=== PATIENT | female | born 1965 | race Caucasian/White ===

== ENCOUNTER 2017-02-11 03:15 | Inpatient (IN) | payer OTHER ==
[~2017-02-11] VITALS: Ht 162.6 cm; Wt 54.4 kg
[2017-02-11 03:33] VITALS: BP 129/73
[2017-02-11] MEDS ORDERED: Ketorolac 30mg Inj IV ONE (03:45)
[2017-02-11] MEDS ORDERED: Morphine Sulfate 4mg/ml Inj IVP ONE ×2 (03:45→05:15)
[2017-02-11 04:00] LABS: BASOPHILS % (AUTO) 0.9 % (0.0-2.0); BILIRUBIN, URINE NEGATIVE (NEGATIVE); EOSINOPHILS % (AUTO) 3.1 % (0.0-3.0); GLUCOSE, URINE (UA) NEGATIVE (NEGATIVE); HEMATOCRIT 45.5 % (37.0-47.0); HEMOGLOBIN 14.8 G/DL (12.0-16.0); KETONES,URINE NEGATIVE (NEGATIVE); LEUKOCYTE ESTERASE ,URINE 2+ (NEGATIVE); LYMPHOCYTES % (AUTO) 36.3 % (20.0-45.0); MEAN CORPUSCULAR VOLUME 90 FL (80-99); MONOCYTES % (AUTO) 8.3 % (1.0-10.0); NEUTROPHILS % (AUTO) 51.4 % (45.0-75.0); NITRITE,URINE NEGATIVE (NEGATIVE); PH,URINE 6 (4.5-8.0); PLATELET COUNT 210 K/UL (150-450); PROTEIN,URINE 2+ (NEGATIVE); RED BLOOD COUNT 5.05 M/UL (4.20-5.40); RED CELL DISTRIBUTION WIDTH 11.5 % (11.6-14.8); UROBILINOGEN,URINE NORMAL MG/DL (0.0-1.0); WHITE BLOOD COUNT 5.7 K/UL (4.8-10.8)
[2017-02-11 04:14] LABS: ANION GAP 7 mmol/L (5-15); APPEARANCE,URINE CLOUDY; BLOOD UREA NITROGEN 27 mg/dL (7-18); CALCIUM 8.3 MG/DL (8.5-10.1); CARBON DIOXIDE 29 MMOL/L (21-32); CHLORIDE 103 MMOL/L (98-107); COLOR,URINE YELLOW; CREATININE 0.9 MG/DL (0.55-1.30); POTASSIUM 3.8 MMOL/L (3.5-5.1); SODIUM 139 MMOL/L (136-145)
[2017-02-11 04:18] LABS: ALANINE AMINOTRANSFERASE 18 U/L (12-78); ALBUMIN 3.9 G/DL (3.4-5.0); ALBUMIN/GLOBULIN RATIO 1.1 (1.0-2.7); ALKALINE PHOSPHATASE 60 U/L (46-116); ASPARTATE AMINO TRANSFERASE 12 U/L (15-37); BILIRUBIN,TOTAL 0.2 MG/DL (0.2-1.0)
[2017-02-11] MEDS ORDERED: HYDROmorphone 1mg/ml Carpuject IVP ONE (06:15)
[2017-02-11 07:15] VITALS: BP 132/78
--- NOTE | 2017-02-11 09:02 | Emergency Room Report ---
History of Present Illness General Chief Complaint: Pain Source: Patient (MASSIEL BLOUNT M.D.) Present Illness HPI 51-year-old female presents to ED complaining of flank pain. States that flank pain started proximally one hour ago sudden onset. 10 out of 10. Sharp. Radiating towards the groin. Patient states she has history of kidney stones. States she's having difficulty urinating. Denies fevers chills. Denies nausea or vomiting. no other aggravating or relieving factors. Denies any other associated symptoms (MASSIEL BLOUNT M.D.) Allergies: Coded Allergies: AMPICILLIN (Verified Adverse Reaction, Unknown, 02/11/17) nausea Patient History Past Medical History: none Past Surgical History: none Pertinent Family History: none Social History: Denies: smoking, alcohol use, drug use Last Menstrual Period: 09/2016 Now: No Immunizations: UTD Reviewed Nursing Documentation: PMH: Agreed, PSxH: Agreed (MASSIEL BLOUNT M.D.) Nursing Documentation-PMH Past Medical History: No History, Except For (MASSIEL BLOUNT M.D.) Review of Systems All Other Systems: negative except mentioned in HPI (MASSIEL BLOUNT M.D.) Physical Exam Vital Signs Date Time Temp Pulse Resp B/P (MAP) Pulse Ox O2 Delivery O2 Flow Rate FiO2 02/11/17 03:19 97.9 80 16 129/73 99 Room Air Sp02 EP Interpretation: reviewed, normal General Appearance: alert, GCS 15, non-toxic, moderate distress Head: normocephalic, atraumatic Eyes: bilateral eye normal inspection, bilateral eye PERRL ENT: hearing grossly normal, normal pharynx, no angioedema, normal voice Neck: full range of motion, supple/symm/no masses Respiratory: chest non-tender, lungs clear, normal breath sounds, speaking full sentences Cardiovascular #1: regular rate, rhythm, no edema Cardiovascular #2: 2+ carotid (R), 2+ carotid (L), 2+ radial (R), 2+ radial (L) , 2+ dorsalis pedis (R), 2+ dorsalis pedis (L) Gastrointestinal: normal bowel sounds, non tender, soft, non-distended, no guarding, no rebound Rectal: deferred Genitourinary: normal inspection, CVA tenderness (L) Musculoskeletal: back normal, gait/station normal, normal range of motion, non- tender Neurologic: alert, oriented x3, responsive, motor strength/tone normal, sensory intact, speech normal Psychiatric: judgement/insight normal, memory normal, mood/affect normal, no suicidal/homicidal ideation Reflexes: 3+ bicep (R), 3+ bicep (L), 3+ tricep (R), 3+ tricep (L), 3+ knee (R) , 3+ knee (L) Skin: normal color, no rash, warm/dry, well hydrated Lymphatic: no adenopathy (MASSIEL BLOUNT M.D.) Medical Decision Making Diagnostic Impression: Primary Impression: Kidney stone Additional Impression: Pyelonephritis Labs Test 02/11/17 04:00 White Blood Count 5.7 K/UL (4.8-10.8) Red Blood Count 5.05 M/UL (4.20-5.40) Hemoglobin 14.8 G/DL (12.0-16.0) Hematocrit 45.5 % (37.0-47.0) Mean Corpuscular Volume 90 FL (80-99) Mean Corpuscular Hemoglobin 29.3 PG (27.0-31.0) Mean Corpuscular Hemoglobin Concent 32.5 G/DL (32.0-36.0) Red Cell Distribution Width 11.5 % (11.6-14.8) Platelet Count 210 K/UL (150-450) Mean Platelet Volume 7.7 FL (6.5-10.1) Neutrophils (%) (Auto) 51.4 % (45.0-75.0) Lymphocytes (%) (Auto) 36.3 % (20.0-45.0) Monocytes (%) (Auto) 8.3 % (1.0-10.0) Eosinophils (%) (Auto) 3.1 % (0.0-3.0) Basophils (%) (Auto) 0.9 % (0.0-2.0) Urine Color Yellow Urine Appearance Cloudy Urine pH 6 (4.5-8.0) Urine Specific [place] 1.025 (1.005-1.035) Urine Protein 2+ (NEGATIVE) Urine Glucose (UA) Negative (NEGATIVE) Urine Ketones Negative (NEGATIVE) Urine Occult Blood 5+ (NEGATIVE) Urine Nitrite Negative (NEGATIVE) Urine Bilirubin Negative (NEGATIVE) Urine Urobilinogen Normal MG/DL (0.0-1.0) Urine Leukocyte Esterase 2+ (NEGATIVE) Urine RBC Tntc /HPF (0 - 2) Urine WBC 15-20 /HPF (0 - 2) Urine Squamous Epithelial Cells Many /LPF (NONE/OCC) Urine Bacteria Few /HPF (NONE) Urine Mucus Many /LPF (NONE/OCC) Sodium Level 139 MMOL/L (136-145) Potassium Level 3.8 MMOL/L (3.5-5.1) Chloride Level 103 MMOL/L (98-107) Carbon Dioxide Level 29 MMOL/L (21-32) Anion Gap 7 mmol/L (5-15) Blood Urea Nitrogen 27 mg/dL (7-18) Creatinine 0.9 MG/DL (0.55-1.30) Estimat Glomerular Filtration Rate > 60 mL/min (>60) Glucose Level 107 MG/DL (74-106) Calcium Level 8.3 MG/DL (8.5-10.1) Total Bilirubin 0.2 MG/DL (0.2-1.0) Aspartate Amino Transf (AST/SGOT) 12 U/L (15-37) Alanine Aminotransferase (ALT/SGPT) 18 U/L (12-78) Alkaline Phosphatase 60 U/L (46-116) Total Protein 7.5 G/DL (6.4-8.2) Albumin 3.9 G/DL (3.4-5.0) Globulin 3.6 g/dL Albumin/Globulin Ratio 1.1 (1.0-2.7) Lipase 432 U/L (73-393) (MASSIEL BLOUNT M.D.) ER Course I received signout Please see above for full history and physical 51-year-old female, found to have a kidney stone, 4 mm, pyelonephritis, intractable pain Endorsed to (Leslie Bravo M.D.) CT/MRI/US Diagnostic Results CT/MRI/US Diagnostic Results : Imaging Test Ordered: CT A/P Impression 4mm L distal ureteral stone. obstructing. hydronephrosis (MASSIEL BLOUNT M.D.) Last Vital Signs Date Time Temp Pulse Resp B/P (MAP) Pulse Ox O2 Delivery O2 Flow Rate FiO2 02/11/17 07:15 72 18 132/78 100 Room Air 02/11/17 03:33 97.9 Status: improved (MASSIEL BLOUNT M.D.) Disposition: ADMITTED INPATIENT Condition: Serious Referrals: NON PHYSICIAN (PCP) MASSIEL BLOUNT M.D. Feb 11, 2017 09:02 Leslie Bravo M.D. Feb 11, 2017 10:42
[2017-02-11 11:10] VITALS: BP 128/76
[2017-02-11] MEDS ORDERED: UNOBMED (11:41)
[2017-02-11 12:40] VITALS: BP 130/72
--- NOTE | 2017-02-11 13:24 | GI Initial Consult Note ---
History of Present Illness General Date patient seen: Feb 11, 2017 Time patient seen: 13:13 Reason for Hospitalization: Pain Referring physician: TANIA PATRICK Reason for Consultation: ABDOMINAL PAIN / elevated lipase Present Illness HPI 51-year-old female presents to ED complaining of flank pain. States that flank pain started proximally one hour ago sudden onset. 10 out of 10. Sharp. Radiating towards the groin. Patient states she has history of kidney stones. States she's having difficulty urinating. Denies fevers chills. Denies nausea or vomiting. no other aggravating or relieving factors. Denies any other associated symptoms. GI consulted for elevated lipase and abdominal pain. HPI as noted above. Pt seen on floor, awake A&Ox4 NAD with no active s/sx of V/D. Has nausea with vomiting at this time. Denies any medical history. Stated she had 15/10 left flank pain last night. Now 4/10, after urinating. CT AP shows left kidney stone with hydronephrosis. No history of endoscopies / colonoscopies. Lab evaluation shows elevated lipase levels. No leukocytosis. Home Meds Reported Medications Unable to Obtain Medications (UNABLE TO OBTAIN MEDS) 1 Ea Ea 02/11/17 Med list reviewed/reconciled: Yes Allergies: Coded Allergies: AMPICILLIN (Verified Adverse Reaction, Unknown, 02/11/17) nausea Patient History History Provided By: Patient, Medical Record PMH Narrative Past Medical History: none Past Surgical History: none Pertinent Family History: none Social History: Denies: smoking, alcohol use, drug use Last Menstrual Period: 09/2016 Now: No Immunizations: UTD Reviewed Nursing Documentation: PMH: Agreed, PSxH: Agreed Nursing Documentation-PM Past Medical History: No History, Except For Social History: Reports: smoking - social, drug use Review of Systems All Other Systems: negative except mentioned in HPI Physical Exam Vital Signs Date Time Temp Pulse Resp B/P (MAP) Pulse Ox O2 Delivery O2 Flow Rate FiO2 02/11/17 03:19 97.9 80 16 129/73 99 Room Air Sp02 EP Interpretation: reviewed, normal Labs Laboratory Tests Test 02/11/17 04:00 White Blood Count 5.7 K/UL (4.8-10.8) Red Blood Count 5.05 M/UL (4.20-5.40) Hemoglobin 14.8 G/DL (12.0-16.0) Hematocrit 45.5 % (37.0-47.0) Mean Corpuscular Volume 90 FL (80-99) Mean Corpuscular Hemoglobin 29.3 PG (27.0-31.0) Mean Corpuscular Hemoglobin Concent 32.5 G/DL (32.0-36.0) Red Cell Distribution Width 11.5 % (11.6-14.8) L Platelet Count 210 K/UL (150-450) Mean Platelet Volume 7.7 FL (6.5-10.1) Neutrophils (%) (Auto) 51.4 % (45.0-75.0) Lymphocytes (%) (Auto) 36.3 % (20.0-45.0) Monocytes (%) (Auto) 8.3 % (1.0-10.0) Eosinophils (%) (Auto) 3.1 % (0.0-3.0) H Basophils (%) (Auto) 0.9 % (0.0-2.0) Urine Color Yellow Urine Appearance Cloudy Urine pH 6 (4.5-8.0) Urine Specific [place] 1.025 (1.005-1.035) Urine Protein 2+ (NEGATIVE) H Urine Glucose (UA) Negative (NEGATIVE) Urine Ketones Negative (NEGATIVE) Urine Occult Blood 5+ (NEGATIVE) H Urine Nitrite Negative (NEGATIVE) Urine Bilirubin Negative (NEGATIVE) Urine Urobilinogen Normal MG/DL (0.0-1.0) Urine Leukocyte Esterase 2+ (NEGATIVE) H Urine RBC Tntc /HPF (0 - 2) H Urine WBC 15-20 /HPF (0 - 2) H Urine Squamous Epithelial Cells Many /LPF (NONE/OCC) H Urine Bacteria Few /HPF (NONE) Urine Mucus Many /LPF (NONE/OCC) H Sodium Level 139 MMOL/L (136-145) Potassium Level 3.8 MMOL/L (3.5-5.1) Chloride Level 103 MMOL/L (98-107) Carbon Dioxide Level 29 MMOL/L (21-32) Anion Gap 7 mmol/L (5-15) Blood Urea Nitrogen 27 mg/dL (7-18) H Creatinine 0.9 MG/DL (0.55-1.30) Estimat Glomerular Filtration Rate > 60 mL/min (>60) Glucose Level 107 MG/DL (74-106) H Calcium Level 8.3 MG/DL (8.5-10.1) L Total Bilirubin 0.2 MG/DL (0.2-1.0) Aspartate Amino Transf (AST/SGOT) 12 U/L (15-37) L Alanine Aminotransferase (ALT/SGPT) 18 U/L (12-78) Alkaline Phosphatase 60 U/L (46-116) Total Protein 7.5 G/DL (6.4-8.2) Albumin 3.9 G/DL (3.4-5.0) Globulin 3.6 g/dL Albumin/Globulin Ratio 1.1 (1.0-2.7) Lipase 432 U/L (73-393) H General Appearance: well appearing, no apparent distress, alert Head: normocephalic EENT: PERRL/EOMI, normal ENT inspection Neck: supple Respiratory: normal breath sounds, no respiratory distress Cardiovascular: normal rate Gastrointestinal: normal inspection, non tender, soft, normal bowel sounds, non -distended Rectal: deferred Genitourinary: no CVA tenderness Musculoskeletal: normal inspection, back normal Neurologic: normal inspection, alert, oriented x3, responsive Psychiatric: normal inspection, judgement/insight normal, memory normal Skin: normal inspection, normal color, no rash, warm/dry, palpation normal, well hydrated Lymphatic: normal inspection, no adenopathy Current Medications Current Medications Medications (Trade) Dose Ordered Sig/Bailey Route PRN Reason Start Time Stop Time Status Last Admin Dose Admin Ondansetron HCl (Zofran) 4 mg Q6H PRN IVP Nausea & Vomiting 02/11/17 12:45 03/13/17 12:44 02/11/17 13:08 Sodium Chloride 1,000 ml @ 75 mls/hr [id number] IV 02/11/17 12:45 03/13/17 12:44 02/11/17 13:09 GI: Plan Problems: (1) Pancreatitis (2) Pyelonephritis Plan CT AP noted with left renal stone and hydronephrosis. elevated lipase levels symptomatic treatment at this time CLD, adv as tolerated zofran prn pain mgmt H2B repeat imaging studies prn fu labs, lipase Discussed with Dr. Gregorio. Thank you for this patient referral, we will follow. Doris Torres N.P. Feb 11, 2017 13:24
[2017-02-11] MEDS ORDERED: HYDROmorphone 1mg/ml Carpuject IVP PRN (16:00)
[2017-02-11] MEDS: Ketorolac 30mg Inj IV SCH ×2 (16:15→22:15)
--- NOTE | 2017-02-11 20:44 | Diagnostic Imaging Report ---
Indication: Left flank pain Technique: CT of the abdomen and pelvis utilizing automated exposure control without intravenous or oral contrast. CT dose: Total DLP 632.35 mGycm; CTDI vol 12.1 mGy Comparison: None Findings: Please note that evaluation of the abdominal pelvic viscera is limited without the use of intravenous and oral contrast. Within these limitations, the following observations are made: Dependent atelectasis noted in the lung bases. Heart size within normal limits. There is no pericardial effusion. Noncontrast evaluation of the liver, gallbladder, spleen, adrenal glands and pancreas is grossly unremarkable. There is a 4 mm stone in the distal left ureter, approximately 1 cm from the UVJ, which results in mild left-sided hydroureteronephrosis and left-sided perinephric stranding. No urinary tract stone or hydronephrosis is seen on the right. The bladder is collapsed, limiting its evaluation. There is a 4 x 5 cm mass in the right adnexal region which may represent an ovarian mass versus pedunculated fibroid. Correlation with pelvic ultrasound is recommended for further evaluation. There is no bowel obstruction. No free intraperitoneal fluid or air is seen. The appendix is normal. There is no bulky abdominal pelvic lymphadenopathy however evaluation is limited without the use of contrast. No acute osseous abnormality is identified. Abdominal aorta is normal in caliber. Impression: Limited evaluation without intravenous or oral contrast. Within these limitations: * 4 mm stone in the distal left ureter resulting in mild left-sided hydroureteronephrosis and left-sided perinephric stranding. Correlation with urinalysis recommended to assess for pyelonephritis * Approximately 4 x 5 cm right adnexal mass versus pedunculated uterine fibroid. Correlation with pelvic ultrasound recommended for better characterization. This corresponds with the statrad preliminary report. The CT scanner at [facility] is accredited by the [employer] and the scans are performed using protocols designed to limit radiation exposure to as low as reasonably achievable to attain images of sufficient resolution adequate for diagnostic evaluation.
[2017-02-11 20:50] VITALS: BP 92/46
--- NOTE | 2017-02-11 22:15 | Consultation ---
DATE OF CONSULTATION: 02/11/2017 UROLOGY CONSULTATION CONSULTING PHYSICIAN: Barrera Lafleur M.D. ATTENDING/CONSULTING PHYSICIAN: Candida Larson M.D. CHIEF COMPLAINT/HISTORY OF PRESENT ILLNESS: I was asked by Dr. Larson to evaluate this very pleasant 51-year-old female regarding history of a ureteral stone with hydronephrosis and colic secondary to the same. Briefly, the patient presented to the hospital with a history of flank and abdominal pain on the left side. This is associated with nausea and vomiting. Apparently 25 years ago, she had a kidney stone, which was passed. A CT scan revealed a 4 mm distal left ureteral stone. The patient had continual pain, so she was admitted for further evaluation and I was asked to evaluate the patient. PAST MEDICAL HISTORY: Remote nephrolithiasis, otherwise, unremarkable. PAST SURGICAL HISTORY: None. MEDICATIONS: Generally none. ALLERGIES: Ampicillin. SOCIAL HISTORY: Unremarkable tobacco, alcohol or drug use. FAMILY HISTORY: Noncontributory. REVIEW OF SYSTEMS: A 12-system review of systems is essentially unremarkable outside of what is described above. PHYSICAL EXAMINATION: GENERAL: The patient is a middle-aged female, awake, alert, oriented x4, pleasant, in no obvious distress. HEENT: NC/AT. EOMI. NECK: Supple. Full range of motion. Oropharynx clear. CHEST: Within normal limits. ABDOMEN: Soft, nontender, and nondistended. EXTREMITIES: Warm and well perfused. No cyanosis, clubbing, or edema. BACK: No CVA tenderness to percussion. NEUROLOGIC: Grossly nonfocal. LABORATORY DATA: White blood cell count 5.7, hematocrit 45.5, platelets 210,000. Sodium 139, potassium 3.8, chloride 103, bicarbonate 29, BUN 27, creatinine 0.9, glucose 107, calcium 8.3. LFTs within normal limits. Lipase 432. Urinalysis, specific gravity 1.025, pH 6.0. Dip test notable for 2+ protein, 5+ occult blood. Microanalysis with too numerous to count red blood cells per high-power field, 15 to 20 white blood cells per high-power field, and few bacteria seen. DIAGNOSTIC IMAGING: CT scan of the abdomen and pelvis reveals a left 4 mm distal ureteral stone with obstructing hydronephrosis secondary to same. ASSESSMENT AND PLAN: In summary, the patient is a 51-year-old female with a history of a left ureteral stone with hydronephrosis and colic secondary to the same. The patient was admitted for intractable pain. I placed the patient on Toradol and her pain has resolved entirely. She wishes to go home. She understands that although the stone is small, she needs to follow up to ensure that it does pass on its own or to have surgical extraction done later on if it does not. She will arrange this through her primary care provider as she has HMO insurance. All the patient's questions were answered and she was amenable to this plan. Thank you for allowing me to participate in the care of this nice lady. Please do not hesitate to contact me for any questions that you may further have regarding her care. I will be happy to see her with you as needed. Barrera Lafleur M.D. DR: CHRISSIE JOB#: [id number] CC:
[2017-02-12 00:05] VITALS: BP 94/50
[2017-02-12] MEDS: Ketorolac 30mg Inj IV SCH ×4 (04:15→22:19)
[2017-02-12 04:51] VITALS: BP 95/52
--- NOTE | 2017-02-12 06:00 | History and Physical Report ---
DATE OF ADMISSION: 02/11/2017 NOTE: POOR AUDIO HISTORY OF PRESENT ILLNESS: The patient is admitted for acute pyelonephritis, has left-sided flank pain for one day, which is associated with vomiting. The patient's pain was getting worse, could not tolerate, she came to the hospital. The patient was admitted for kidney stone 4 mm. The patient denies fever or chills. Denies rectal bleeding. Denies dysuria. The patient also denies any change in weight. The patient basically also is admitted for elevated lipase as well complained of abdominal pain for one day. PAST MEDICAL HISTORY: None. PAST SURGICAL HISTORY: . MEDICATIONS: The patient does not take anything . ALLERGIES: Penicillin. FAMILY HISTORY: Noncontributory. REVIEW OF SYSTEMS: HEENT: Denies headaches. RESPIRATORY: Denies shortness of breath. Denies cough. CARDIOVASCULAR: Denies chest pain. GASTROINTESTINAL: Does have nausea and vomiting. Does have abdominal pain and flank pain. EXTREMITIES: pain in lower extremity which was removed. PHYSICAL EXAMINATION: VITAL SIGNS: Temperature is 97.9, pulse 80, and blood pressure 139/73. HEENT: PERRLA. NECK: Supple. No lymphadenopathy. CHEST: Clear to auscultation. GASTROINTESTINAL: Abdomen is soft. Positive bowel sounds. Epigastric tenderness as well as left-sided flank tenderness. No rebound. EXTREMITIES: No edema. . NEUROLOGICAL: touch. LABORATORY DATA: WBC of 5.7, hemoglobin 14.8, and platelets 210,000. Sodium 139, potassium 3.8, BUN of 33, creatinine , and glucose of 107. Lipase 432. signs and symptoms of UTI. ASSESSMENT AND PLAN: left-sided kidney stones . and Dr. Gregorio to see the patient for the above-mentioned diagnosis and treatment. Candida Larson M.D. DR: Isidra JOB#: [id number] CC:
[2017-02-12 06:29] LABS: ANION GAP 10 mmol/L (5-15); BLOOD UREA NITROGEN 23 mg/dL (7-18); CALCIUM 7.6 MG/DL (8.5-10.1); CARBON DIOXIDE 23 MMOL/L (21-32); CHLORIDE 108 MMOL/L (98-107); CREATININE 0.7 MG/DL (0.55-1.30); POTASSIUM 3.7 MMOL/L (3.5-5.1); SODIUM 141 MMOL/L (136-145)
[2017-02-12 06:42] LABS: BASOPHILS % (AUTO) 0.8 % (0.0-2.0); EOSINOPHILS % (AUTO) 3.8 % (0.0-3.0); HEMATOCRIT 38.7 % (37.0-47.0); HEMOGLOBIN 12.9 G/DL (12.0-16.0); LYMPHOCYTES % (AUTO) 40.8 % (20.0-45.0); MEAN CORPUSCULAR VOLUME 91 FL (80-99); MONOCYTES % (AUTO) 5.9 % (1.0-10.0); NEUTROPHILS % (AUTO) 48.7 % (45.0-75.0); PLATELET COUNT 183 K/UL (150-450); RED BLOOD COUNT 4.27 M/UL (4.20-5.40); RED CELL DISTRIBUTION WIDTH 11.5 % (11.6-14.8); WHITE BLOOD COUNT 5.9 K/UL (4.8-10.8)
[2017-02-12 08:00] VITALS: BP 99/50
--- NOTE | 2017-02-12 08:50 | Consultation ---
History of Present Illness General Date patient seen: Feb 12, 2017 Chief Complaint: Referring physician: Reason for Consultation: Present Illness Allergies: Coded Allergies: AMPICILLIN (Verified Adverse Reaction, Unknown, 02/11/17) nausea Medication History Miscellaneous Medications Unable to Obtain Medications (Unable To Obtain Meds), (Reported) Patient History Healthcare decision maker Resuscitation status Full Code Advanced Directive on File Physical Exam Last 24 Hour Vital Signs Date Time Temp Pulse Resp B/P (MAP) Pulse Ox O2 Delivery O2 Flow Rate FiO2 02/12/17 08:00 98.4 62 18 99/50 98 02/12/17 04:51 97.9 61 17 95/52 97 02/12/17 00:05 97.7 59 18 94/50 98 02/11/17 20:50 98.1 66 18 92/46 98 02/11/17 12:40 74 18 130/72 99 Room Air 02/11/17 12:40 97.9 74 18 130/72 99 Room Air 02/11/17 11:10 70 18 128/76 98 Room Air Intake and Output 02/11/17 02/12/17 19:00 07:00 Intake Total 450 ml 825 ml Balance 450 ml 825 ml Intake IV Total 450 ml 825 ml # Voids 3 Laboratory Tests Test 02/12/17 05:45 White Blood Count 5.9 K/UL (4.8-10.8) Red Blood Count 4.27 M/UL (4.20-5.40) Hemoglobin 12.9 G/DL (12.0-16.0) Hematocrit 38.7 % (37.0-47.0) Mean Corpuscular Volume 91 FL (80-99) Mean Corpuscular Hemoglobin 30.2 PG (27.0-31.0) Mean Corpuscular Hemoglobin Concent 33.2 G/DL (32.0-36.0) Red Cell Distribution Width 11.5 % (11.6-14.8) L Platelet Count 183 K/UL (150-450) Mean Platelet Volume 7.6 FL (6.5-10.1) Neutrophils (%) (Auto) 48.7 % (45.0-75.0) Lymphocytes (%) (Auto) 40.8 % (20.0-45.0) Monocytes (%) (Auto) 5.9 % (1.0-10.0) Eosinophils (%) (Auto) 3.8 % (0.0-3.0) H Basophils (%) (Auto) 0.8 % (0.0-2.0) Sodium Level 141 MMOL/L (136-145) Potassium Level 3.7 MMOL/L (3.5-5.1) Chloride Level 108 MMOL/L (98-107) H Carbon Dioxide Level 23 MMOL/L (21-32) Anion Gap 10 mmol/L (5-15) Blood Urea Nitrogen 23 mg/dL (7-18) H Creatinine 0.7 MG/DL (0.55-1.30) Estimat Glomerular Filtration Rate > 60 mL/min (>60) Glucose Level 78 MG/DL (74-106) Calcium Level 7.6 MG/DL (8.5-10.1) L Lipase 117 U/L (73-393) Height (Feet): 5 Height (Inches): 4.00 Weight (Pounds): 120 Medications Current Medications Medications (Trade) Dose Ordered Sig/Bailey Route PRN Reason Start Time Stop Time Status Last Admin Dose Admin Hydromorphone HCl (Dilaudid) 1 mg Q4H PRN IVP severe pain 02/11/17 16:00 02/18/17 15:59 Ketorolac Tromethamine (Toradol 30mg) 15 mg Q6H IV 02/11/17 16:15 02/16/17 16:14 Ondansetron HCl (Zofran) 4 mg Q6H PRN IVP Nausea & Vomiting 02/11/17 12:45 03/13/17 12:44 02/11/17 13:08 Sodium Chloride 1,000 ml @ 75 mls/hr [id number] IV 02/11/17 12:45 03/13/17 12:44 02/12/17 02:13 Assessment/Plan Assessment/Plan (1) Left sided flank pain (2) Urethral stone (3) Hydronephrosis seen KRISTOPHER Borrego Feb 12, 2017 08:50
[2017-02-12] MEDS ORDERED: Hydromorphone 0.5mg/0.5ml inj IVP PRN ×2 (10:15→14:15)
--- NOTE | 2017-02-12 10:40 | GI Progress Note ---
Assessment/Plan Problems: (1) Pyelonephritis ICD Codes: N12 - Tubulo-interstitial nephritis, not specified as acute or chronic SNOMED: 37608303 (2) Pancreatitis ICD Codes: K85.90 - Acute pancreatitis without necrosis or infection, unspecified SNOMED: 46480105 (3) Kidney stone ICD Codes: N20.0 - Calculus of kidney SNOMED: 06744045 Status: deteriorating Status Narrative Discussed with Dr. Gregorio. Assessment/Plan CT AP noted with left renal stone and hydronephrosis. elevated lipase levels >> now normal fu urology recs symptomatic treatment at this time regular diet, tolerating zofran prn pain mgmt H2B repeat imaging studies prn fu labs Subjective Subjective left flank pain Objective Last 24 Hour Vital Signs Date Time Temp Pulse Resp B/P (MAP) Pulse Ox O2 Delivery O2 Flow Rate FiO2 02/12/17 08:00 98.4 62 18 99/50 98 02/12/17 04:51 97.9 61 17 95/52 97 02/12/17 00:05 97.7 59 18 94/50 98 02/11/17 20:50 98.1 66 18 92/46 98 02/11/17 12:40 74 18 130/72 99 Room Air 02/11/17 12:40 97.9 74 18 130/72 99 Room Air 02/11/17 11:10 70 18 128/76 98 Room Air Intake and Output 02/11/17 02/12/17 19:00 07:00 Intake Total 450 ml 825 ml Balance 450 ml 825 ml IV Total 450 ml 825 ml # Voids 3 Laboratory Tests Test 02/12/17 05:45 White Blood Count 5.9 K/UL (4.8-10.8) Red Blood Count 4.27 M/UL (4.20-5.40) Hemoglobin 12.9 G/DL (12.0-16.0) Hematocrit 38.7 % (37.0-47.0) Mean Corpuscular Volume 91 FL (80-99) Mean Corpuscular Hemoglobin 30.2 PG (27.0-31.0) Mean Corpuscular Hemoglobin Concent 33.2 G/DL (32.0-36.0) Red Cell Distribution Width 11.5 % (11.6-14.8) L Platelet Count 183 K/UL (150-450) Mean Platelet Volume 7.6 FL (6.5-10.1) Neutrophils (%) (Auto) 48.7 % (45.0-75.0) Lymphocytes (%) (Auto) 40.8 % (20.0-45.0) Monocytes (%) (Auto) 5.9 % (1.0-10.0) Eosinophils (%) (Auto) 3.8 % (0.0-3.0) H Basophils (%) (Auto) 0.8 % (0.0-2.0) Sodium Level 141 MMOL/L (136-145) Potassium Level 3.7 MMOL/L (3.5-5.1) Chloride Level 108 MMOL/L (98-107) H Carbon Dioxide Level 23 MMOL/L (21-32) Anion Gap 10 mmol/L (5-15) Blood Urea Nitrogen 23 mg/dL (7-18) H Creatinine 0.7 MG/DL (0.55-1.30) Estimat Glomerular Filtration Rate > 60 mL/min (>60) Glucose Level 78 MG/DL (74-106) Calcium Level 7.6 MG/DL (8.5-10.1) L Lipase 117 U/L (73-393) Height (Feet): 5 Height (Inches): 4.00 Weight (Pounds): 120 General Appearance: WD/WN, no apparent distress, alert Cardiovascular: normal rate Respiratory/Chest: normal breath sounds, no respiratory distress Abdominal Exam: normal bowel sounds, non tender, soft Extremities: normal range of motion, non-tender Doris Torres N.P. Feb 12, 2017 10:40
[2017-02-12 12:00] VITALS: BP 95/52
--- NOTE | 2017-02-12 12:43 | General Progress Note ---
Assessment/Plan Problem List: (1) Pancreatitis ICD Codes: K85.90 - Acute pancreatitis without necrosis or infection, unspecified SNOMED: 52337726 (2) Kidney stone ICD Codes: N20.0 - Calculus of kidney SNOMED: 91597460 Status: unchanged Assessment/Plan still has flank pain treatment of kidney stone per urologist Subjective Gastrointestinal/Abdominal: Reports: abdominal pain Allergies: Coded Allergies: AMPICILLIN (Verified Adverse Reaction, Unknown, 02/11/17) nausea Objective Last 24 Hour Vital Signs Date Time Temp Pulse Resp B/P (MAP) Pulse Ox O2 Delivery O2 Flow Rate FiO2 02/12/17 12:00 98.3 59 18 95/52 97 02/12/17 09:59 98.4 02/12/17 09:59 98.4 02/12/17 08:00 98.4 62 18 99/50 98 02/12/17 04:51 97.9 61 17 95/52 97 02/12/17 00:05 97.7 59 18 94/50 98 02/11/17 20:50 98.1 66 18 92/46 98 Intake and Output 02/11/17 02/12/17 19:00 07:00 Intake Total 450 ml 825 ml Balance 450 ml 825 ml IV Total 450 ml 825 ml # Voids 3 Laboratory Tests 02/12/17 05:45: White Blood Count 5.9, Red Blood Count 4.27, Hemoglobin 12.9, Hematocrit 38.7, Mean Corpuscular Volume 91, Mean Corpuscular Hemoglobin 30.2, Mean Corpuscular Hemoglobin Concent 33.2, Red Cell Distribution Width 11.5L, Platelet Count 183, Mean Platelet Volume 7.6, Neutrophils (%) (Auto) 48.7, Lymphocytes (%) (Auto) 40.8, Monocytes (%) (Auto) 5.9, Eosinophils (%) (Auto) 3.8H, Basophils (%) (Auto ) 0.8, Sodium Level 141, Potassium Level 3.7, Chloride Level 108H, Carbon Dioxide Level 23, Anion Gap 10, Blood Urea Nitrogen 23H, Creatinine 0.7, Estimat Glomerular Filtration Rate > 60, Glucose Level 78, Calcium Level 7.6L, Lipase 117 Height (Feet): 5 Height (Inches): 4.00 Weight (Pounds): 120 Cardiovascular: normal rate Respiratory/Chest: lungs clear Abdomen: tender Candida Larson MD Feb 12, 2017 12:43
[2017-02-12] MEDS: Cefepime HCl 1 GM in D5W 55 ML IVPB SCH ×2 (14:14→20:48)
[2017-02-12] MEDS ORDERED: Morphine Sulfate 2mg/ml Inj IVP ONE (14:30)
[2017-02-12 16:00] VITALS: BP 98/52
--- NOTE | 2017-02-12 17:00 | Consultation ---
DATE OF CONSULTATION: 02/12/2017 INFECTIOUS DISEASES CONSULTATION CONSULTING PHYSICIAN: Sanjuanita Nichols M.D. REFERRING PHYSICIAN: Candida Larson M.D. This consultation has been done on behalf of Dr. Ervin Dinh. REASON FOR CONSULTATION: Urinary tract infection. HISTORY OF PRESENTING ILLNESS: This is a 51-year-old lady with no significant past medical history, who came in with left-sided flank pain along with some nausea and vomiting. There is a concern for urinary tract infection and an Infectious Diseases consultation has been obtained for antibiotics. PAST MEDICAL HISTORY: She denies any past medical history of any illnesses. MEDICATIONS: As an inpatient, she is on Dilaudid, ketorolac, and Zofran. ALLERGIES: She is allergic to ampicillin. SOCIAL HISTORY: She does not smoke, drink, or use drugs. FAMILY HISTORY: Positive for cancer. REVIEW OF SYSTEMS: RESPIRATORY: She denies any fever, chills, cough, shortness of breath, or chest pain. CARDIAC: No chest pain. No palpitation. No dizziness. No syncope. GASTROINTESTINAL: She had nausea and vomiting. She complains of left flank pain. GENITOURINARY: No dysuria. No hematuria. PHYSICAL EXAMINATION: VITAL SIGNS: Temperature of 98.4, T-max of 98.4, pulse of 62, respiratory rate of 18, blood pressure 99/50, and O2 saturation of 98%. HEENT: Pupils equally reactive to light and accommodation. Mouth appears clean with no thrush. NECK: Supple. No adenopathy. No JVD. CARDIOVASCULAR: Regular rate and rhythm. No murmurs. LUNGS: Clear to auscultation bilaterally. No crackles. No wheezes. ABDOMEN: Soft and nontender. No organomegaly. Left-sided flank tenderness noted. EXTREMITIES: No cyanosis, no clubbing, and no edema. LABORATORY AND DIAGNOSTIC DATA: White count 5.9, hemoglobin 12.9, hematocrit 38.7, MCV 91, and platelet count of 183. Sodium 141, potassium 3.7, chloride 108, bicarbonate 23, BUN 23, creatinine 0.7 and glucose 141. Calcium 7.6. Total bilirubin 0.2. AST 12, ALT 18, and alkaline phosphatase 60. Total protein 7.5. Albumin 3.9. lipase of 432 yesterday. UA showing 15 to 20 white cells. Urine cultures are negative so far. CT of the abdomen and pelvis showing 4 mm stone in the distal left ureteral resulting in mid left-sided hydroureteronephrosis and left-sided perinephric stranding. Right adnexal mass versus pedunculated uterine fibroids. ASSESSMENT: This is a 51-year-old lady with no significant past medical history, who comes in with kidney stone and a possible pyelonephritis. Urine cultures are negative so far. PLAN: 1. We will start the patient on IV cefepime. 2. We will follow up cultures and adjust antibiotics accordingly. I would like to thank, Dr. Larson today for this consultation. Sanjuanita Nichols M.D. DR: NIA JOB#: [id number] CC: Candida Larson M.D.; Fax#: [phone]
[2017-02-12 20:00] VITALS: BP 96/54
[2017-02-13 00:23] VITALS: BP 93/56
--- NOTE | 2017-02-13 02:00 | Consultation ---
DATE OF CONSULTATION: 02/12/2017 NOTE: POOR AUDIO PAIN MANAGEMENT CONSULTATION CONSULTING PHYSICIAN: Guilherme Barrios M.D. ATTENDING/REFERRING PHYSICIAN: Candida Larson M.D. PHYSICIAN DIRECTOR HR COMMUNICATIONS: Miguel Kwan CHIEF COMPLAINT: Left-sided flank pain. HISTORY OF PRESENT ILLNESS: This is a 51-year-old female, who is being seen on the Med/Surg floor of [facility] for initial comprehensive pain management consultation. The patient left-sided flank pain with an abdominal pain due to ureteral stone, admitted through the ER into the hospital. She was started on Dilaudid 1 mg IV every 4 hours as needed for severe pain. Pain has reduced discharge home. PAST MEDICAL HISTORY: Nephrolithiasis. PAST SURGICAL HISTORY: Denies. MEDICATIONS: Denies. ALLERGIES: Ampicillin. SOCIAL HISTORY: Denies smoking tobacco, drinking alcohol, or IV drug abuse. REVIEW OF SYSTEMS: Denies rash, fever, chills, sweating, dizziness, drowsiness, or change in her weight. No shortness of breath, chest pain, palpitations, or cough. No nausea, vomiting, diarrhea, or blood in the stool or urine. No bowel or bladder incontinence. No dysuria. She is complaining of left-sided flank pain. PHYSICAL EXAMINATION: GENERAL: Alert, awake, and oriented. VITAL SIGNS: Blood pressure /50, heart rate is , oxygen saturation 98%, respiratory rate 18, and temperature is 97.5 degrees Fahrenheit. HEENT: PERRLA. NECK: Range of motion is full in all directions. No tenderness to paracervical muscles. No adenopathy. LUNGS: Clear. HEART: Regular. ABDOMEN: Benign. EXTREMITIES: No cyanosis, no clubbing, and no edema. NEUROLOGICAL: No focal deficit. ASSESSMENT AND PLAN: This is a 51-year-old female with left-sided flank pain, ureteral stone, and hydronephrosis. 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 Continue Dilaudid 1 mg IV every 4 hours as needed for severe pain. The patient was discussed with Dr. Barrios and Dr. Barrios concurred. We will follow the patient. Thank you very much for the courtesy of this consultation. Guilherme Barrios M.D. APARNA Kwan DR: IZRichard JOB#: [id number] CC:
[2017-02-13 04:00] VITALS: BP 101/52
[2017-02-13] MEDS: Ketorolac 30mg Inj IV SCH ×2 (04:15→10:15)
[2017-02-13 06:39] LABS: BASOPHILS % (AUTO) 0.9 % (0.0-2.0); HEMATOCRIT 36.4 % (37.0-47.0); HEMOGLOBIN 12.6 G/DL (12.0-16.0); LYMPHOCYTES % (AUTO) 47.2 % (20.0-45.0); MEAN CORPUSCULAR VOLUME 90 FL (80-99); MONOCYTES % (AUTO) 4.9 % (1.0-10.0); NEUTROPHILS % (AUTO) 39.9 % (45.0-75.0); PLATELET COUNT 159 K/UL (150-450); RED BLOOD COUNT 4.04 M/UL (4.20-5.40); RED CELL DISTRIBUTION WIDTH 11.5 % (11.6-14.8); WHITE BLOOD COUNT 5.8 K/UL (4.8-10.8)
[2017-02-13 07:03] LABS: ANION GAP 9 mmol/L (5-15); BLOOD UREA NITROGEN 21 mg/dL (7-18); CALCIUM 7.5 MG/DL (8.5-10.1); CARBON DIOXIDE 23 MMOL/L (21-32); CHLORIDE 109 MMOL/L (98-107); CREATININE 0.6 MG/DL (0.55-1.30); POTASSIUM 3.9 MMOL/L (3.5-5.1); SODIUM 141 MMOL/L (136-145)
[2017-02-13 08:40] VITALS: BP 105/47
[2017-02-13] MEDS: Cefepime HCl 1 GM in D5W 55 ML IVPB SCH (09:07)
[2017-02-13] MEDS ORDERED: Docusate 100mg cap ORAL SCH (10:15)
[2017-02-13] MEDS ORDERED: Bisacodyl EC 5mg tab ORAL SCH (10:15)
[2017-02-13] MEDS ORDERED: Sennosides 8.6mg ORAL SCH (10:15)
--- NOTE | 2017-02-13 10:29 | GI Progress Note ---
Assessment/Plan Problems: (1) Pyelonephritis ICD Codes: N12 - Tubulo-interstitial nephritis, not specified as acute or chronic SNOMED: 60338775 (2) Pancreatitis ICD Codes: K85.90 - Acute pancreatitis without necrosis or infection, unspecified SNOMED: 22405561 (3) Kidney stone ICD Codes: N20.0 - Calculus of kidney SNOMED: [id number] Status: unchanged Status Narrative Discussed with Dr. Gregorio. Assessment/Plan CT AP noted with left renal stone and hydronephrosis. elevated lipase levels >> now normal fu urology recs okay for DC per GI standpoint symptomatic treatment at this time regular diet, tolerating zofran prn pain mgmt H2B repeat imaging studies prn fu labs Subjective Subjective left flank pain, comes and goes Objective Last 24 Hour Vital Signs Date Time Temp Pulse Resp B/P (MAP) Pulse Ox O2 Delivery O2 Flow Rate FiO2 02/13/17 08:40 97.5 60 18 105/47 98 Room Air 02/13/17 04:00 Room Air 02/13/17 04:00 97.2 78 17 101/52 97 02/13/17 00:23 97.9 64 17 93/56 94 02/12/17 20:00 97.6 62 18 96/54 97 Room Air 02/12/17 17:48 97.8 02/12/17 16:01 96 Room Air 02/12/17 16:00 97.8 61 18 98/52 96 02/12/17 15:24 97.8 02/12/17 14:15 98.3 02/12/17 12:01 97 Room Air 02/12/17 12:00 98.3 59 18 95/52 97 Intake and Output 02/12/17 02/13/17 19:00 07:00 Intake Total 1370 ml 900 ml Balance 1370 ml 900 ml Intake Oral 620 ml IV Total 750 ml 900 ml # Voids 3 Laboratory Tests Test 02/13/17 04:50 White Blood Count 5.8 K/UL (4.8-10.8) Red Blood Count 4.04 M/UL (4.20-5.40) L Hemoglobin 12.6 G/DL (12.0-16.0) Hematocrit 36.4 % (37.0-47.0) L Mean Corpuscular Volume 90 FL (80-99) Mean Corpuscular Hemoglobin 31.2 PG (27.0-31.0) H Mean Corpuscular Hemoglobin Concent 34.6 G/DL (32.0-36.0) Red Cell Distribution Width 11.5 % (11.6-14.8) L Platelet Count 159 K/UL (150-450) Mean Platelet Volume 8.0 FL (6.5-10.1) Neutrophils (%) (Auto) 39.9 % (45.0-75.0) L Lymphocytes (%) (Auto) 47.2 % (20.0-45.0) H Monocytes (%) (Auto) 4.9 % (1.0-10.0) Eosinophils (%) (Auto) 7.0 % (0.0-3.0) H Basophils (%) (Auto) 0.9 % (0.0-2.0) Sodium Level 141 MMOL/L (136-145) Potassium Level 3.9 MMOL/L (3.5-5.1) Chloride Level 109 MMOL/L (98-107) H Carbon Dioxide Level 23 MMOL/L (21-32) Anion Gap 9 mmol/L (5-15) Blood Urea Nitrogen 21 mg/dL (7-18) H Creatinine 0.6 MG/DL (0.55-1.30) Estimat Glomerular Filtration Rate > 60 mL/min (>60) Glucose Level 95 MG/DL (74-106) Calcium Level 7.5 MG/DL (8.5-10.1) L Height (Feet): 5 Height (Inches): 4.00 Weight (Pounds): 120 General Appearance: WD/WN, no apparent distress, alert Cardiovascular: normal rate Respiratory/Chest: normal breath sounds, no respiratory distress Abdominal Exam: normal bowel sounds, non tender, soft Extremities: normal range of motion, non-tender Doris Torres N.P. Feb 13, 2017 10:29
[2017-02-13] MEDS ORDERED: Levofloxacin 500mg tab ORAL SCH (11:00)
--- NOTE | 2017-02-13 11:00 | Infectious Diseases Prog Note ---
Assessment/Plan Assessment/Plan antibiotics : cefepime A 1. pyelonephritis 2. renal stone P 1. d/c cefepime 2. start and continue po levoquin 4 more days 3. will follow up cultures Subjective Constitutional: Denies: fever, chills Respiratory: Denies: shortness of breath, dry cough Gastrointestinal/Abdominal: Reports: nausea, Denies: vomiting, diarrhea Musculoskeletal: Reports: pain - decreasing Allergies: Coded Allergies: AMPICILLIN (Verified Adverse Reaction, Unknown, 02/11/17) nausea Objective Vital Signs Last 24 Hour Vital Signs Date Time Temp Pulse Resp B/P (MAP) Pulse Ox O2 Delivery O2 Flow Rate FiO2 02/13/17 08:40 97.5 60 18 105/47 98 Room Air 02/13/17 04:00 Room Air 02/13/17 04:00 97.2 78 17 101/52 97 02/13/17 00:23 97.9 64 17 93/56 94 02/12/17 20:00 97.6 62 18 96/54 97 Room Air 02/12/17 17:48 97.8 02/12/17 16:01 96 Room Air 02/12/17 16:00 97.8 61 18 98/52 96 02/12/17 15:24 97.8 02/12/17 14:15 98.3 02/12/17 12:01 97 Room Air 02/12/17 12:00 98.3 59 18 95/52 97 Height (Feet): 5 Height (Inches): 4.00 Weight (Pounds): 120 Respiratory/Chest: lungs clear Cardiovascular: normal rate, regular rhythm, no gallop/murmur Abdomen: soft, non tender Extremities: no edema Microbiology Date/Time Source Procedure Growth Status 02/11/17 04:00 Urine,Clean Catch Urine Culture - Preliminary NO GROWTH AFTER 24 HOURS Resulted Laboratory Tests Test 02/13/17 04:50 White Blood Count 5.8 K/UL (4.8-10.8) Red Blood Count 4.04 M/UL (4.20-5.40) L Hemoglobin 12.6 G/DL (12.0-16.0) Hematocrit 36.4 % (37.0-47.0) L Mean Corpuscular Volume 90 FL (80-99) Mean Corpuscular Hemoglobin 31.2 PG (27.0-31.0) H Mean Corpuscular Hemoglobin Concent 34.6 G/DL (32.0-36.0) Red Cell Distribution Width 11.5 % (11.6-14.8) L Platelet Count 159 K/UL (150-450) Mean Platelet Volume 8.0 FL (6.5-10.1) Neutrophils (%) (Auto) 39.9 % (45.0-75.0) L Lymphocytes (%) (Auto) 47.2 % (20.0-45.0) H Monocytes (%) (Auto) 4.9 % (1.0-10.0) Eosinophils (%) (Auto) 7.0 % (0.0-3.0) H Basophils (%) (Auto) 0.9 % (0.0-2.0) Sodium Level 141 MMOL/L (136-145) Potassium Level 3.9 MMOL/L (3.5-5.1) Chloride Level 109 MMOL/L (98-107) H Carbon Dioxide Level 23 MMOL/L (21-32) Anion Gap 9 mmol/L (5-15) Blood Urea Nitrogen 21 mg/dL (7-18) H Creatinine 0.6 MG/DL (0.55-1.30) Estimat Glomerular Filtration Rate > 60 mL/min (>60) Glucose Level 95 MG/DL (74-106) Calcium Level 7.5 MG/DL (8.5-10.1) JAZZ WAGONER Feb 13, 2017 11:00
[2017-02-13] MEDS ORDERED: LEVAQUIN500 MG ORAL (11:04)
[2017-02-13] MEDS ORDERED: 1/2 NS 1000ml IV ONE (11:12)
--- NOTE | 2017-02-14 15:39 | Discharge Summary ---
Discharge Summary Hospital Course Date of Admission Feb 11, 2017 at 06:11 Date of Discharge Feb 13, 2017 at 11:13 Admitting Diagnosis kidney stone/pyelonephritis SHARYN Mary Ordonez is a 51 year old female who was admitted on Feb 11, 2017 at 06:11 for Kidney Stone,Pyelonephritis Hospital Course [id number] Discharge Discharge Disposition Patient was discharged to Home (01) Discharge Diagnoses: Nellie Crowley NP Feb 14, 2017 15:39
--- NOTE | 2017-02-14 22:15 | Discharge Summary 2 SIG ---
DATE OF ADMISSION: 02/11/2017 DATE OF DISCHARGE: 02/13/2017 CONSULTANTS: 1. Sanjuanita Nichols M.D. 2. Kobi Gregorio M.D. 3. Guilherme Barrios M.D. 4. Barrera Lafleur M.D. BRIEF HOSPITAL COURSE: The patient is a 51-year-old female, who presented to ED complaining of flank pain, which started an hour prior to admission. Pain was 10/10, described to be sharp and radiating towards the groin. She has a history of kidney stones and has been having difficulty urinating. On evaluation at ED, there was no leukocytosis. Urine RBC too many to count, urine WBC [address] of the abdomen and pelvis showed a 4 mm left distal ureteral stone with left-sided hydroureteronephrosis. She was then admitted for renal colic and ureteral stone. She was followed by urologist. The patient was placed on pain management and was given IV hydration. She was given IV cefepime for urine infection. She had elevated lipase levels, which eventually normalized. She was tolerating regular diet and was given H2 blockers and Zofran p.r.n. She was advised to follow up with HMO for surgical extraction of the stone. She was taken off of cefepime and was discharged home on p.o. antibiotics. FINAL DIAGNOSES: 1. Pyelonephritis. 2. Renal stone. 3. Acute pancreatitis, resolved. DISPOSITION: The patient was discharged home. DISCHARGE MEDICATIONS: Continue with Levaquin 500 mg daily for four days. DISCHARGE INSTRUCTIONS: Follow up with PMD in a week. The patient will need Urology evaluation for possible stone extraction. Candida Larson M.D. I have been assigned to dictate discharge summary on this account and I was not involved in the patient's management. David BelloP. DR: SHAMAR JOB#: [id number] CC:
== END 2017-02-13 11:13 | disposition home or self-care (01) | DRG 693 ==
LOC: EMR 03:38 → 3E 06:11 → EDBEDREQ 07:57
DX: N13.2 Hydronephrosis with renal and ureteral calculous obstruction (principal); K85.90 Acute pancreatitis without necrosis or infection, unspecified; N10 Acute pyelonephritis
CPT/HCPCS: 36415; 74176; 80048; 80053; 81003; 83690; 85025; 87086; 99285; J2405